=== PATIENT | female | born 1970 | race Caucasian/White ===

== ENCOUNTER 2020-05-09 12:01 | Outpatient (CLI) | payer OTHER | END 2020-05-09 12:24 | disposition home or self-care (01) | LOC: SONOGRAMA 12:01 | PROVIDERS: ATTEND Surgery | DX: D24.2 Benign neoplasm of left breast (principal); N60.11 Diffuse cystic mastopathy of right breast; N60.12 Diffuse cystic mastopathy of left breast ==

== ENCOUNTER 2023-09-15 10:59 | Outpatient (CLI) | payer OTHER | END 2023-09-15 11:05 | disposition home or self-care (01) | LOC: MAMO-SONO 10:59 | PROVIDERS: ATTEND Obstetrics & Gynecology | DX: N60.11 Diffuse cystic mastopathy of right breast (principal) ==